=== PATIENT | male | born 1965 ===

== ENCOUNTER 2018-04-17 23:36 | Emergency (ER) | payer SELFPAY ==
[2018-04-17 23:37] VITALS: BMI 39.9
[2018-04-18] VITALS: RESP 18; TEMP 98.3
--- NOTE | 2018-04-18 00:24 | ED PDOC ---
Arrival/HPI <Bren Beltre - Last Filed: 04/18/18 01:11> <Stanford Gill - Last Filed: 04/18/18 01:47> - General Chief Complaint: Abnormal Skin Integrity Time Seen by Provider: 04/17/18 23:42 - History of Present Illness Narrative History of Present Illness (Text): 04/18/18 00:15 Patient is a 52 year old male with no significant past medical history who presents to the ED complaining of enlarging painful mass on his neck. Patient says he started noticing a small bump on the back of his neck many years ago, but 3 days ago he noticed it enlarging and becoming so painful that he could not lay down on his back to sleep at night. He describes the pain as sharp, stabbing, and 10/10 intensity. He says it has been causing him headaches for the last three days as well. Patient says it has never become inflamed like this before. He denies fever, chills, dizziness, decreased ROM of the neck, sore throat, back pain, and numbness/tingling in the extremities. (Bren Beltre) Past Medical History - Past History Past History: No Previous - Tetanus Immunization Tetanus Immunization: Unknown - Musculoskeletal/Rheumatological Hx Falls: No - Psychiatric Hx Depression: No Hx Emotional Abuse: No Hx Physical Abuse: No Hx Substance Use: No - Surgical History Hx Appendectomy: Yes Other/Comment: herniated discs - Suicidal Assessment Feels Threatened In Home Enviroment: No <Bren Beltre - Last Filed: 04/18/18 01:11> - Provider Review Nursing Documentation Reviewed: Yes <Stanford Gill - Last Filed: 04/18/18 01:47> Family/Social History Family/Social History: Unknown Family HX Smoking Status: Never Smoked Hx Alcohol Use: No Hx Substance Use: No Hx Substance Use Treatment: No <Bren Beltre - Last Filed: 04/18/18 01:11> - Physician Review Nursing Documentation Reviewed: Yes <Stanford Gill - Last Filed: 04/18/18 01:47> Allergies/Home Meds <Bren Beltre - Last Filed: 04/18/18 01:11> <Stanford Gill - Last Filed: 04/18/18 01:47> Allergies/Adverse Reactions: Allergies No Known Allergies Allergy (Verified 12/11/12 16:04) Review of Systems - Physician Review All systems were reviewed & negative as marked: Yes - Review of Systems Constitutional: Normal Eyes: Normal ENT: Normal Respiratory: Normal Cardiovascular: Normal Musculoskeletal: Neck Pain (posterior ). absent: Arthralgias, Back Pain Skin: Abscess (posterior neck at the hairline) Neurological: Headache. absent: Dizziness <Bren Beltre - Last Filed: 04/18/18 01:11> Physical Exam Vital Signs Reviewed: Yes Temperature: Afebrile Blood Pressure: Normal Pulse: Regular Respiratory Rate: Normal Appearance: Positive for: Well-Appearing, Non-Toxic, Comfortable Pain Distress: Mild Mental Status: Positive for: Alert and Oriented X 3 - Systems Exam Head: Present: Atraumatic, Normocephalic Pupils: Present: PERRL Extroacular Muscles: Present: EOMI Conjunctiva: Present: Normal Neck: Present: Normal Range of Motion, Other (tender abscess at posterior neck at hairline; 4 cm x 3 cm, indurated, painful) Respiratory/Chest: Present: Clear to Auscultation, Good Air Exchange. No: Respiratory Distress, Accessory Muscle Use Cardiovascular: Present: Regular Rate and Rhythm, Normal S1, S2. No: Murmurs Abdomen: Present: Normal Bowel Sounds. No: Tenderness, Distention, Peritoneal Signs Back: Present: Normal Inspection. No: Midline Tenderness, Paraspinal Tenderness Upper Extremity: Present: Normal Inspection Lower Extremity: Present: Normal Inspection Neurological: Present: GCS=15, Speech Normal Skin: Present: Warm, Dry, Normal Color, Induration (as described above in neck exam), Abscess (as described above). No: Erythematous Psychiatric: Present: Alert, Oriented x 3, Normal Insight, Normal Concentration <Bren Beltre - Last Filed: 04/18/18 01:11> Vital Signs Temp Pulse Resp BP Pulse Ox 04/17/18 23:56 98.3 F 72 18 143/79 97 Medical Decision Making <Bren Beltre - Last Filed: 04/18/18 01:11> <Stanford Gill - Last Filed: 04/18/18 01:47> ED Course and Treatment: 04/18/18 01:22 I&D performed at bedside: Area prepped and sterilized with betadine. Lidocaine 1% without epinephrine used for local anesthesia. A linear incision was made with an 11 blade and purulent material expressed. The abscess was explored thoroughly and loculations were broken down. Bleeding was minimal. Cultures were taken. Abscess was packed with 1/4 inch iodoform packing and bandage was placed. ( Bren Beltre) Seen and examined with resident. 52 year old male presents complaining of enlarging and worsening pain from a mass on the back of neck that began 3 days ago. On examination, patient presents with a tender 4cm x 3cm abscess at the posterior neck. (Stanford Gill) - Medication Orders Current Medication Orders: Discontinued Medications Acetaminophen (Tylenol 325mg Tab) 650 mg PO STAT STA Stop: 04/18/18 01:39 - PA / MANAGER ORGANIZATIONAL / Resident Statement MD/DO has reviewed & agrees with the documentation as recorded. MD/DO has examined the patient and agrees with the treatment plan. <Bren Beltre - Last Filed: 04/18/18 01:11> - Scribe Statement The provider has reviewed the documentation as recorded by the Scribe <Stanford Gill - Last Filed: 04/18/18 01:47> - Scribe Statement Barron Calixto Provider Scribe Attestation: All medical record entries made by the Scribe were at my direction and personally dictated by me. I have reviewed the chart and agree that the record accurately reflects my personal performance of the history, physical exam, medical decision making, and the department course for this patient. I have also personally directed, reviewed, and agree with the discharge instructions and disposition. (Stanford Gill) Disposition/Present on Arrival - Present on Arrival Any Indicators Present on Arrival: No History of DVT/PE: No History of Uncontrolled Diabetes: No Urinary Catheter: No History of Decub. Ulcer: No History Surgical Site Infection Following: None - Disposition Have Diagnosis and Disposition been Completed?: Yes Disposition Time: 01:28 <Bren Beltre - Last Filed: 04/18/18 01:11> <Stanford Gill - Last Filed: 04/18/18 01:47> - Disposition Diagnosis: Neck abscess Condition: STABLE Discharge Instructions (ExitCare): Abscess Incision and Drainage Additional Instructions: Please follow up in 2 days to have the packing removed. You will need to follow up with your primary care provider by the end of the week for further coordination of your care. Your PCP may have you see a general surgeon in the future for cyst removal to prevent future episodes. Please take Doxycycline 100 mg by mouth twice daily for 7 days. You may take Tylenol if you are experiencing any pain. Please return to the ED if you are experiencing any new or worsening symptoms. Prescriptions: Doxycycline Monohydrate 100 mg PO BID 7 Days #14 tablet Forms: [employer] ([place])
[2018-04-18] MEDS ORDERED: Lidocaine 1% Inj (20ml) ONE (00:26)
[2018-04-18 01:49] VITALS: BP 138/82; PULSE 85; O2SAT 100
== END 2018-04-18 01:49 | disposition home or self-care (01) ==
LOC: ED 23:36
DX: L02.11 Cutaneous abscess of neck (principal)

== ENCOUNTER 2018-04-20 05:28 | Emergency (ER) | payer SELFPAY ==
[2018-04-20 05:28] VITALS: BMI 39.9
[2018-04-20 05:37] VITALS: BP 128/75; RESP 18; TEMP 98.1
--- NOTE | 2018-04-20 05:45 | ED PDOC ---
Arrival/HPI - General Chief Complaint: Wound Check Time Seen by Provider: 04/20/18 05:34 - History of Present Illness Narrative History of Present Illness (Text): 04/20/18 05:42 Patient is a 52 year old male with no significant past medical history who presents to the ED for a wound check. Patient was here a few days ago with an abscess on the back of his neck and an I&D was done at that time. Patient says the packing fell out yesterday but his neck feels much better now with much less pain. Patient still noticing some purulent drainage. Denies fever, chills, surround pain and erythema. (Bren Beltre) Past Medical History - Past History Past History: No Previous - Infectious Disease Hx of Infectious Diseases: None - Tetanus Immunization Tetanus Immunization: Unknown - Musculoskeletal/Rheumatological Hx Falls: No - Psychiatric Hx Depression: No Hx Emotional Abuse: No Hx Physical Abuse: No Hx Substance Use: No - Surgical History Hx Appendectomy: Yes Other/Comment: herniated discs - Suicidal Assessment Feels Threatened In Home Enviroment: No Family/Social History Family/Social History: Unknown Family HX Smoking Status: Never Smoked Hx Alcohol Use: No Hx Substance Use: No Hx Substance Use Treatment: No Allergies/Home Meds Allergies/Adverse Reactions: Allergies No Known Allergies Allergy (Verified 12/11/12 16:04) Review of Systems - Physician Review All systems were reviewed & negative as marked: Yes - Review of Systems Constitutional: Normal. absent: Fevers Eyes: Normal ENT: Normal Respiratory: Normal Cardiovascular: Normal Gastrointestinal: Normal Musculoskeletal: Normal. absent: Neck Pain Skin: Abscess (s/p I&D on the posterior neck) Neurological: Normal. absent: Headache, Dizziness Physical Exam Vital Signs Reviewed: Yes Temperature: Afebrile Blood Pressure: Normal Pulse: Regular Respiratory Rate: Normal Appearance: Positive for: Well-Appearing, Non-Toxic, Comfortable Pain Distress: None Mental Status: Positive for: Alert and Oriented X 3 - Systems Exam Head: Present: Atraumatic, Normocephalic Pupils: Present: PERRL Extroacular Muscles: Present: EOMI Conjunctiva: Present: Normal Mouth: Present: Moist Mucous Membranes Neck: Present: Normal Range of Motion. No: MIDLINE TENDERNESS Respiratory/Chest: Present: Clear to Auscultation, Good Air Exchange. No: Respiratory Distress, Accessory Muscle Use Cardiovascular: Present: Regular Rate and Rhythm, Normal S1, S2. No: Murmurs Abdomen: No: Tenderness, Distention Upper Extremity: Present: Normal Inspection Lower Extremity: Present: Normal Inspection Neurological: Present: GCS=15, Speech Normal Skin: Present: Warm, Dry, Normal Color, Abscess (s/p I&D on the posterior neck; some purulent material expressed; no erythema). No: Rashes, Erythematous Psychiatric: Present: Alert, Oriented x 3, Normal Insight, Normal Concentration Vital Signs Temp Pulse Resp BP Pulse Ox 04/20/18 05:36 98.1 F 70 18 128/75 98 Medical Decision Making ED Course and Treatment: 04/20/18 05:47 Patient seen and examined. Told patient to continue the antibiotics until they are finished and keep the area clean and dry. Discussed with Dr. Skaggs. ( Bren Beltre) Impression: Pt seen and evaluated with pesticide use medical coordinator. Aware and agree with HPI, clinical findings, plan, and management. Pt, with no significant past medical history, presented for posterior wound neck s/p I&D a few days prior. Plan: -- Reassess and disposition (Dre Skaggs) - PA / [employer]PER[employer]OR / Resident Statement MD/DO has reviewed & agrees with the documentation as recorded. MD/DO has examined the patient and agrees with the treatment plan. Disposition/Present on Arrival - Present on Arrival Any Indicators Present on Arrival: No History of DVT/PE: No History of Uncontrolled Diabetes: No Urinary Catheter: No History of Decub. Ulcer: No History Surgical Site Infection Following: None - Disposition Have Diagnosis and Disposition been Completed?: Yes Disposition Time: 05:48 - Disposition Diagnosis: Abscess of skin of neck, Wound check, abscess Disposition: HOME/ ROUTINE Condition: STABLE Discharge Instructions (ExitCare): Abscess Incision and Drainage (DC) Additional Instructions: Please follow up with your primary care provider within 1-2 days. Please continue antibiotics until completion. Please return to the Emergency department if you experience any new or worsening symptoms. Forms: [employer] (Czech)
[2018-04-20 06:05] VITALS: PULSE 74; O2SAT 99
== END 2018-04-20 06:01 | disposition home or self-care (01) ==
LOC: ED 05:28
DX: L02.11 Cutaneous abscess of neck (principal); Z48.817 Encounter for surgical aftercare following surgery on the skin and subcutaneous tissue